=== PATIENT | male | born 1960 | race Caucasian/White ===

== ENCOUNTER → 2024-01-08 08:17 | Outpatient (REF) | payer OTHER, SELFPAY | LOC: RCS 08:17 | PROVIDERS: ATTENDING PHYSICIAN Internal Medicine | DX: R00.2 Palpitations (principal) | CPT/HCPCS: 93225; 93226 ==

== ENCOUNTER → 2024-02-04 10:16 | Outpatient (REF) | payer OTHER, SELFPAY | LOC: RAD 10:16 | PROVIDERS: ATTENDING PHYSICIAN Internal Medicine; FAMILY PHYSICIAN Internal Medicine | DX: R13.10 Dysphagia, unspecified (principal) | CPT/HCPCS: 74221 ==

== ENCOUNTER → 2024-04-08 06:45 | Outpatient (REF) | payer OTHER, SELFPAY | LOC: RCS 06:45 | PROVIDERS: ATTENDING PHYSICIAN Internal Medicine Cardiovascular Disease; FAMILY PHYSICIAN Internal Medicine | DX: R06.02 Shortness of breath (principal) | CPT/HCPCS: 78452; 93017; A9500 ==

== ENCOUNTER → 2024-04-14 06:58 | Outpatient (REF) | payer OTHER, SELFPAY | LOC: HWRCS 06:58 | PROVIDERS: ATTENDING PHYSICIAN Internal Medicine Cardiovascular Disease; FAMILY PHYSICIAN Internal Medicine | DX: R06.02 Shortness of breath (principal) | CPT/HCPCS: 93306 ==

== ENCOUNTER 2024-06-19 22:01 | Emergency (ER) | payer OTHER, SELFPAY ==
[2024-06-19 22:04] VITALS: BP 182/107
[2024-06-19 22:30] LABS: % Basophils 0.3 % (0-2); % Eosinophils 0.1 % (0-6); % Immature Granulocytes 0.4 % (0-0.5); % Lymphocytes 4.7 % (20.5-51.1); % Monocytes 4.3 % (1.7-9.3); % Neutrophils 90.2 % (42.2-75.2); Absolute Immature Granulocytes 0.1 10^3/uL (0-0.05); Absolute Lymphocytes 0.6 10^3/uL (1.2-3.4); Absolute Monocytes 0.6 10^3/uL (0.1-0.6); Absolute Neutrophils 11.9 10^3/uL (1.4-6.5); Hematocrit 42.8 % (39.0-52.0); Hemoglobin 15.4 g/dL (13.0-18.0); Mean Corpuscular Hgb 29.1 pg (27.0-31.0); Mean Corpuscular Volume 80.9 fL (80.0-94.0); Nucleated Red Blood Cells % 0 % (-); Platelet Count 221 10^3/uL (130-400); Red Blood Cell Count 5.29 10^6/uL (4.70-6.10); Red Cell Dist. Width 13.1 % (11.5-14.5); White Blood Cell Count 13.1 10^3/uL (4.8-10.8)
[2024-06-19 22:39] VITALS: BMI 27.1
[2024-06-19 22:53] LABS: ALT (SGPT) 20 U/L (0-50); AST (SGOT) 22 U/L (17-59); Albumin 4.8 g/dl (3.5-5.0); Alkaline Phosphatase 91 U/L (38-126); Blood Urea Nitrogen 19 mg/dl (9-20); Calcium 10.2 mg/dl (8.4-10.2); Carbon Dioxide 25 mmol/L (22-30); Chloride 99 mmol/L (98-107); Estimated Creatinine Clearance 106 ml/min; Glucose 181 mg/dl (70-99); Potassium 3.8 mmol/L (3.5-5.1); Sodium 138 mmol/L (135-145); Total Bilirubin 0.9 mg/dl (0.2-1.3); Total Protein 7.2 g/dl (6.3-8.2); eGFR > 60.00
[2024-06-19 22:58] LABS: Troponin I < 0.012 ng/ml
--- NOTE | 2024-06-19 22:59 | ED.GENMED ---
History of Present Illness
General
Chief Complaint: Chest Pain
Source: patient and spouse
Exam Limitations: none
Time Seen by Provider: 06/19/24 22:31
Nursing documentation reviewed up to this point in time: agreed with
History of Present Illness
History of Present Illness:
63-year-old male last couple days undergoing Mohs surgery for skin cancer started on doxycycline and tramadol, down hour after taking the tramadol developed chest pain shortness of breath nausea vomiting, apparently has a family history of narcotic
allergy/intolerance, no fevers,
Past History
Past History
ED Past Medical History: HTN, NIDDM and Other
ED Past Surgical History: Other (In the hernia repair)
Social History
Tobacco: Non-smoker
Alcohol: None
Drug: None
Personal:
Living: with family
Employment: Employed
Family History
Family History: Other (Father with OK at 66 uncle with CHF)
Review of Systems
Review of Systems
All Other Systems: Not applicable
Constitutional: Reports fatigue; Denies fever
EENT: Reports other (face pain)
Respiratory: Reports trouble breathing
Cardiac: Reports chest pain and diaphoresis
ABD/GI: Reports nausea and vomiting
: Reports no symptoms
Musculoskeletal: Reports no symptoms
Neurological: Reports dizzy and weakness
Endocrine: Reports no symptoms
Hematologic/Lymphatic: Reports no symptoms
Phy Exam
Physical Exam
Physical Exam:
Physical Exam
General: 63-year-old male looks uncomfortable surgical dressing on the right mid face
Neck: No jaundice
Heart: s1/s2 regular rate and rhythm, no murmur. equal radial pulses.
Lungs: no acute respiratory distress. clear bilaterally
Abdomen: Not tender
Neuro: alert and oriented. no focal neurological deficits
Skin: no rash
Psychiatric: well kept. interactive and cooperative
Extremities: no edema.
Scores
Heart Score for Chest Pain Patients
STEMI patient?: No
History: Slightly or Non-Suspicious
ECG: Normal
Age: >45 - <65 years
Risk Factors: 1 or 2 Risk Factors
Troponin: </= Normal Limit
Heart Score for Chest Pain Patients: 2
Heart Score Risk: 2.5% MACE over next 6 weeks
Course
Orders/Labs/Results
Orders:
Orders
06/19/24 22:02
Electrocardiogram (*1) Urgent
Reason for Study: Chest Pain
EKG- Treatment ONCE
06/19/24 22:24
Complete Blood Count/With Diff Urgent
Comprehensive Metabolic Panel Urgent
Troponin I Urgent
06/19/24 22:42
0.9% Sodium Chloride 500 ml [Nss] 500 ml IV BOLUS
HYDROmorphone [Dilaudid] 0.5 mg IV NOW STA
Ondansetron Injectable [Zofran] 4 mg IV NOW STA
CR Chest Portable - 1 View Urgent
Comment:
Reason For Exam: sob
Reason Study Needs to be Portable: Unable to Transport
06/19/24 22:43
Bedside Glucose- Treatment DIRECTED
06/20/24 00:48
Troponin I Urgent
06/20/24 00:55
HYDROmorphone [Dilaudid] 1 mg IV NOW STA
Abnormal Lab Results
06/19/24
22:24
WBC 13.1 H 10^3/uL
(4.8-10.8)
MPV 11.0 H fL
(7.4-10.4)
Abs Immat Gran (auto) 0.1 H 10^3/uL
(0-0.05)
Absolute Neuts (auto) 11.9 H 10^3/uL
(1.4-6.5)
Absolute Lymphs (auto) 0.6 L 10^3/uL
(1.2-3.4)
Neutrophils % 90.2 H %
(42.2-75.2)
Lymphocytes % 4.7 L %
(20.5-51.1)
Glucose 181 H mg/dl
(70-99)
06/19/24 22:24
06/19/24 22:24
Vital Signs
Initial and Last Documented VS:
Initial Vital Signs
Temp Pulse Resp BP Pulse Ox
98 F 113 18 182/107 98
06/19/24 22:04 06/19/24 22:04 06/19/24 22:04 06/19/24 22:04 06/19/24 22:04
Last Documented Vital Signs
Temp Pulse Resp BP Pulse Ox
98 F 90 12 160/82 97
06/19/24 22:04 06/20/24 01:15 06/20/24 01:15 06/20/24 01:00 06/20/24 01:15
MDM/Problems Addressed
Differential Diagnosis Includes:
med reaction hypoglycemia acs doubt PE
*Radiology
Radiology exam reviewed: radiology read reviewed
*Pulse Oximetry
Patient hypoxic: no
*EKG
Interpreted by ED Provider?: Yes
Interpretation: normal
Comparison EKG: no comparison EKG present
Heart Rate: 78
Rate: normal
Rhythm: sinus
Ischemia: no ischemia
*Information Specialist Interpretation
Rate: normal
Interpretation: normal
Heart Rate: 78
Rhythm: sinus
*Critical Care Note
Total Time (30-74mins, 75-104mins- exclusive of procedures): Not Applicable
Update Note
Update Note:
Update labs noted troponin noted will repeat, leukosis noted, feeling better after Dilaudid and Zofran
update--- troponin x 2 and detectable, stress echo from earlier this year reviewed
Update patient feeling better, says that he took tramadol and empty stomach, his family member had hallucinations after Percocet, has had fairly extensive facial Mohs surgery for melanoma
Will discharge with some pain meds and Zofran, be sure he takes it on a full stomach
ED Attending Note
-
Portions of this chart may have been created with voice recognition software.� Occasional wrong word or��sound alike� substitutions may have occurred due to the inherent limitations of voice recognition software.
Discharge Plan
Departure
Patient Disposition: Home (Routine Discharge)
Date of Disposition: 06/20/24
Time of Disposition: 01:51
Patient with high blood pressure during this ER visit?: No
Condition: Good
Discharge Problem:
Post-operative nausea and vomiting
Instructions: Chest Pain DCA Follow Up, Managing pain after surgery
Prescriptions:
No Action
simvastatin 40 MG tablet
40 mg PO HS
metformin 1,000 MG tablet
1,000 mg PO BID
lisinopril 30 MG tablet
30 mg PO DAILY
aspirin 325 MG tablet
81 mg PO HS Qty: 0 0RF
Patient Comments:
on hold for colonscopy
Rx Instructions:
resume in 1 week at low dose.
Referrals:
Jorje Rangel MD [Family Provider] -
Interventions
Interventions:
*Risk Screen - Suicide Last Done: 06/19/24 22:04
*General Assessment Last Done: 06/19/24 22:04
*Neglect/Abuse Screening Last Done: 06/19/24 22:04
ED- Fall Risk Assessment Last Done: 06/19/24 22:39
*ED COVID-19 Vaccine History Last Done: 06/19/24 22:41
ED- Cardiac Assessment Last Done: 06/19/24 22:39
Discharge Date and Time
Print Language: KOSOVAN
[2024-06-19] MEDS: ZOFRAN 4 MG IV (23:06)
[2024-06-19] MEDS: DILAUDID 0.5 MG IV (23:06)
[2024-06-19] MEDS: NSS 500 IV (23:14)
[2024-06-19 23:19] VITALS: BP 177/87
[2024-06-19 23:21] VITALS: BP 177/87
[2024-06-20] VITALS: BP 162/84
[2024-06-20 01:00] VITALS: BP 160/82
[2024-06-20] MEDS: DILAUDID 1 MG IV (01:08)
[2024-06-20 01:25] LABS: Troponin I < 0.012 ng/ml
[2024-06-20 02:00] VITALS: BP 151/87
[2024-06-20] MEDS: ROXICODONE 5 MG PO (02:22)
== END 2024-06-20 02:15 | disposition home or self-care (01) ==
LOC: EMR 22:01
PROVIDERS: Student in an Organized Health Care Education/Training Program; EMERGENCY PHYSICIAN Emergency Medicine; FAMILY PHYSICIAN Internal Medicine
DX: R11.2 Nausea with vomiting, unspecified (principal)
CPT/HCPCS: 99285; 96374; 96375; 96361; 96376; 71045; 80053; 84484; 85025; 93005

== ENCOUNTER 2024-09-26 06:28 | Day surgery (SDC) | payer OTHER, SELFPAY ==
[2024-09-15 08:37] LABS: Hematocrit 40.5 % (39.0-52.0); Hemoglobin 13.5 g/dL (13.0-18.0); Mean Corp Hgb Conc. 33.3 g/dL (33.0-37.0); Mean Corpuscular Hgb 29.7 pg (27.0-31.0); Mean Platelet Volume 11.6 fL (7.4-10.4); Platelet Count 180 10^3/uL (130-400); Red Blood Cell Count 4.55 10^6/uL (4.70-6.10); Red Cell Dist. Width 12.9 % (11.5-14.5); White Blood Cell Count 5.7 10^3/uL (4.8-10.8)
[2024-09-15 09:05] LABS: Blood Urea Nitrogen 21 mg/dl (9-20); Calcium 8.9 mg/dl (8.4-10.2); Carbon Dioxide 29 mmol/L (22-30); Chloride 101 mmol/L (98-107); Glucose 99 mg/dl (70-99); Potassium 4.1 mmol/L (3.5-5.1); Sodium 138 mmol/L (135-145); eGFR > 60.00
[2024-09-15 13:38] VITALS: BMI 27.9
[2024-09-26] VITALS (10 sets, daily range): BP systolic 123–160; BP diastolic 63–88; BMI 27.9
[2024-09-26 10:48] LABS: Glucose - Point of Care 98 mg/dl (70-99)
[2024-09-26] MEDS: TYLENOL 1000 MG PO (11:15)
[2024-09-26] MEDS: NORMOSOL-R/PLASMALYTE-A 1000 IV (11:23)
[2024-09-26 14:31] LABS: Glucose - Point of Care 135 mg/dl (70-99)
[2024-09-26] MEDS: SUBLIMAZE 25 MCG IV (15:14)
== END 2024-09-26 16:35 | disposition home or self-care (01) ==
LOC: SDS 06:28
PROVIDERS: ATTENDING PHYSICIAN Surgery; FAMILY PHYSICIAN Internal Medicine
DX: K40.90 Unilateral inguinal hernia, without obstruction or gangrene, not specified as recurrent (principal)
CPT/HCPCS: 49650; 36415; 80048; 82962; 85027; 93005; C1781